=== PATIENT | female | born 1990 | race Caucasian/White ===

== ENCOUNTER → 2023-01-08 10:04 | Outpatient (BNVA) | payer MEDICAID, SELFPAY | PROVIDERS: Visit Provider Physician Assistant ==

== ENCOUNTER 2023-01-14 08:07 | Outpatient (AMB) | payer MEDICAID, SELFPAY ==
--- NOTE | 2023-01-14 13:16 | A.OFFVIS_ITS ---
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[employer] SWL BMI 38.2 HPI Details Start time: 1.15pm, End time: 2pm ?I spent 40 minutes speaking with the patient on the phone plus an additional 5 minutes reviewing and updating records for a total of 45 minutes HPI Comments History of Present Illness0 Details Previous weight loss efforts: Keto diet, 21-day diet Wakes up: 7am, Sleeps:11pm Breakfast: skips Lunch: 12-1pm (stuffed peppers, low carb wraps with chicken) Dinner: 7.30pm (same as lunch) Snacks: none Exercise: has Gym membership Fluids: Coffee: 1 8oz cup/d (creamer, milk), hot or iced tea: 2 cups/day (plain), soda/juice: none, ETOH: none PFSH Medical History (Updated 01/14/23 @ 13:20 by Jesus Manuel Coreas MD) Asthma DJD (degenerative joint disease) GERD (gastroesophageal reflux disease) PCOS (polycystic ovarian syndrome) Non-insulin dependent type 2 diabetes mellitus Surgical History (Updated 01/14/23 @ 13:20 by Jesus Manuel Coreas MD) Previous section Assessment & Plan Assessment & Plan (1) Obesity: Code(s): E66.9 - Obesity, unspecified Plan: 1.? Plan for lap sleeve gastrectomy. If diaphragmatic or ventral hernias are present at time of surgery, these will be repaired laparoscopically as well. Risks and complications were discussed in detail including possible conversion to an open procedure, anastomotic leak, bleeding requiring transfusion, small bowel obstruction, , DVT and pulmonary embolism, cardiac, or pulmonary complications, as prison complications such as anastomotic ulcer, insufficient weight loss and vitamin deficiencies. I emphasized the importance of close follow-up, adherence to instructions and good communication. 2. Nutritional counseling. Start with 2 CELEBRATE REBUILD protein (buy at hospital[facility]) shakes (HALF scoop EACH in 8oz low fat unsweetened almond milk each) at 8am-10am and 11am-1pm, 1 protein bar (CELEBRATE protein bars, buy at [facility] [employer] [facility]) at 2pm-4pm, HALF protein bar at 5-6pm, dinner at 7pm (8 forks of protein and 8 forks of salad/vegetables) AND one more protein bar after dinner at 9pm-11pm. So you do 2 protein shakes, 2.5 protein bars and one meal per day. Meal to include lean meat (beef, fish, pork, turkey, chicken), or cymro yogurt, or egg whites, or beans with a salad with olive oil and fruits (berries, pears, apples, kiwi). Avoid salt, breads, potatoes, rice, pasta, desserts. 3. Each shake would be drunk slowly, like coffee in a period of 2 hours. 4. Cut each bar in 4 pieces and eat each piece in 30min ?to make each bar last 2 hours. 5. I emphasized the importance of measuring accurately the food portion and measure it when serving the food in plate 6. The meal portions include 8 full-size forks of meat and 8 full-size forks of salad. You always eat the meat portion but you can replace up to 4 forks for salad/vegetables with rice, potatoes or pasta, or a fruit ?if you like. The less you do it the better weight loss will be. 7. One full-size fork is what it can be scooped on the fork without falling aside and not what can be bit with the fork. Use regular forks like those you find in a typical restaurant. 8.? Please send me weight measurements as soon as possible and then once a week. Always include your diet and exercise plan. Alternatively come weekly at the office for weight checks and send me the measurements. 9. Start treadmill with an incline of 2.0 and speed of 3.0. Increase incline by 1 every 3 min to a max incline of 8.0, stay 3min at 8.0 and then return to 2.0 and repeat same steps until calorie goal is met. Goal is to burn 2000 calories per week on exercise, which means either 300 calories daily, or 400 calories 5 days per week, or 500 calories 4 days per week, or 650 calories 3 days per week. Start also weight exercises with 20-30lbs for chest/shoulders/abdomen and 40- 50lbs for thighs doing 2 sets of 15 repetitions each. 10. Alternatively purchase a stationary bike, elliptical or treadmill at home that can track calories. Let me know if you do so I can give you an exercise plan. 11.?It is important of avoiding and for at least 18 months postoperatively and has been discussed at the infosession. 12. Goal is to lose at least 1.5-2lbs per week 13. Goal to lose 10% of your weight before surgery, which is about 22lbs. Ultimate weight goal: 197lbs before surgery 14. Please follow the diet plan exactly without any change. If you don't like something about the plan or you feel hungry you need to communicate with me so I can help you revise the plan. You should not change the plan yourself. (2) BMI 38.0-38.9,adult: Code(s): Z68.38 - Body mass index [BMI] 38.0-38.9, adult (3) PCOS (polycystic ovarian syndrome): Code(s): E28.2 - Polycystic ovarian syndrome (4) Non-insulin dependent type 2 diabetes mellitus: Code(s): E11.9 - Type 2 diabetes mellitus without complications (5) GERD (gastroesophageal reflux disease): Code(s): K21.9 - Gastro-esophageal reflux disease without esophagitis (6) DJD (degenerative joint disease): Code(s): M19.90 - Unspecified osteoarthritis, unspecified site (7) Asthma: Code(s): J45.909 - Unspecified asthma, uncomplicated Orders: Orders Insulin Today E11.9 - Type 2 diabetes mellitus without complications, E28.2 - Polycystic ovarian syndrome, E66.9 - Obesity, unspecified, J45.909 - Unspecified asthma, uncomplicated, K21.9 - Gastro-esophageal reflux disease without esophagitis, Z68.38 - Body mass index [BMI] 38.0-38.9, adult Vitamin B12 and Folate Today E11.9 - Type 2 diabetes mellitus without complications, E28.2 - Polycystic ovarian syndrome, E66.9 - Obesity, unspecified, J45.909 - Unspecified asthma, uncomplicated, K21.9 - Gastro- esophageal reflux disease without esophagitis, Z68.38 - Body mass index [BMI] 38.0-38.9, adult Zinc Today E11.9 - Type 2 diabetes mellitus without complications, E28.2 - Polycystic ovarian syndrome, E66.9 - Obesity, unspecified, J45.909 - Unspecified asthma, uncomplicated, K21.9 - Gastro-esophageal reflux disease without esophagitis, Z68.38 - Body mass index [BMI] 38.0-38.9, adult Vitamin A Today E11.9 - Type 2 diabetes mellitus without complications, E28.2 - Polycystic ovarian syndrome, E66.9 - Obesity, unspecified, J45.909 - Unspecified asthma, uncomplicated, K21.9 - Gastro-esophageal reflux disease without esopha gitis, Z68.38 - Body mass index [BMI] 38.0-38.9, adult Ferritin Today E11.9 - Type 2 diabetes mellitus without complications, E28.2 - Polycystic ovarian syndrome, E66.9 - Obesity, unspecified, J45.909 - Unspecified asthma, uncomplicated, K21.9 - Gastro-esophageal reflux disease without esophagitis, Z68.38 - Body mass index [BMI] 38.0-38.9, adult Vitamin D 25-OH Total Today E11.9 - Type 2 diabetes mellitus without complications, E28.2 - Polycystic ovarian syndrome, E66.9 - Obesity, unspecified, J45.909 - Unspecified asthma, uncomplicated, K21.9 - Gastro- esophageal reflux disease without esophagitis, Z68.38 - Body mass index [BMI] 38.0-38.9, adult Hemoglobin A1c Today E11.9 - Type 2 diabetes mellitus without complications, E28.2 - Polycystic ovarian syndrome, E66.9 - Obesity, unspecified, J45.909 - Unspecified asthma, uncomplicated, K21.9 - Gastro-esophageal reflux disease without esophagitis, Z68.38 - Body mass index [BMI] 38.0-38.9, adult XR chest 2V Today E11.9 - Type 2 diabetes mellitus without complications, E28.2 - Polycystic ovarian syndrome, E66.9 - Obesity, unspecified, J45.909 - Unspecified asthma, uncomplicated, K21.9 - Gastro-esophageal reflux disease without esophagitis, Z68.38 - Body mass index [BMI] 38.0-38.9, adult ECG 12 lead EKG Today E11.9 - Type 2 diabetes mellitus without complications, E28.2 - Polycystic ovarian syndrome, E66.9 - Obesity, unspecified, J45.909 - Unspecified asthma, uncomplicated, K21.9 - Gastro-esophageal reflux disease without esophagitis, Z68.38 - Body mass index [BMI] 38.0-38.9, adult Lipid Panel Today E11.9 - Type 2 diabetes mellitus without complications, E28.2 - Polycystic ovarian syndrome, E66.9 - Obesity, unspecified, J45.909 - Unspecified asthma, uncomplicated, K21.9 - Gastro-esophageal reflux disease without esophagitis, Z68.38 - Body mass index [BMI] 38.0-38.9, adult IRON PROFILE Today E11.9 - Type 2 diabetes mellitus without complications, E28.2 - Polycystic ovarian syndrome, E66.9 - Obesity, unspecified, J45.909 - Unspecified asthma, uncomplicated, K21.9 - Gastro-esophageal reflux disease without esophagitis, Z68.38 - Body mass index [BMI] 38.0-38.9, adult Complete Blood Count Auto Diff Today E11.9 - Type 2 diabetes mellitus without complications, E28.2 - Polycystic ovarian syndrome, E66.9 - Obesity, unspecified, J45.909 - Unspecified asthma, uncomplicated, K21.9 - Gastro- esophageal reflux disease without esophagitis, Z68.38 - Body mass index [BMI] 38.0-38.9, adult Comprehensive Met. Panel Today E11.9 - Type 2 diabetes mellitus without complications, E28.2 - Polycystic ovarian syndrome, E66.9 - Obesity, unspecified, J45.909 - Unspecified asthma, uncomplicated, K21.9 - Gastro- esophageal reflux disease without esophagitis, Z68.38 - Body mass index [BMI] 38.0-38.9, adult Vitamin B1 Today E11.9 - Type 2 diabetes mellitus without complications, E28.2 - Polycystic ovarian syndrome, E66.9 - Obesity, unspecified, J45.909 - Unspecified asthma, uncomplicated, K21.9 - Gastro-esophageal reflux disease without esophagitis, Z68.38 - Body mass index [BMI] 38.0-38.9, adult C Reactive Protein Today E11.9 - Type 2 diabetes mellitus without complications, E28.2 - Polycystic ovarian syndrome, E66.9 - Obesity, unspecified, J45.909 - Unspecified asthma, uncomplicated, K21.9 - Gastro-esophageal reflux disease without esophagitis, Z68.38 - Body mass index [BMI] 38.0-38.9, adult PTHI Today E11.9 - Type 2 diabetes mellitus without complications, E28.2 - Polycystic ovarian syndrome, E66.9 - Obesity, unspecified, J45.909 - Unspecified asthma, uncomplicated, K21.9 - Gastro-esophageal reflux disease without esophagitis, Z68.38 - Body mass index [BMI] 38.0-38.9, adult TSH reflex Free T4 Today E11.9 - Type 2 diabetes mellitus without complications, E28.2 - Polycystic ovarian syndrome, E66.9 - Obesity, unspecified, J45.909 - Unspecified asthma, uncomplicated, K21.9 - Gastro-esophageal reflux disease without esophagitis, Z68.38 - Body mass index [BMI] 38.0-38.9, adult H Pylori Breath Test Today E11.9 - Type 2 diabetes mellitus without complications, E28.2 - Polycystic ovarian syndrome, E66.9 - Obesity, unspecified, J45.909 - Unspecified asthma, uncomplicated, K21.9 - Gastro- esophageal reflux disease without esophagitis, Z68.38 - Body mass index [BMI] 38.0-38.9, adult US abdomen comp w elastography Today E11.9 - Type 2 diabetes mellitus without complications, E28.2 - Polycystic ovarian syndrome, E66.9 - Obesity, unspecified, J45.909 - Unspecified asthma, uncomplicated, K21.9 - Gastro- esophageal reflux disease without esophagitis, Z68.38 - Body mass index [BMI] 38.0-38.9, adult FL upper GI w air Today E11.9 - Type 2 diabetes mellitus without complications, E28.2 - Polycystic ovarian syndrome, E66.9 - Obesity, unspecified, J45.909 - Unspecified asthma, uncomplicated, K21.9 - Gastro-esophageal reflux disease without esophagitis, Z68.38 - Body mass index [BMI] 38.0-38.9, adult Referrals Behavioral Health Referral E11.9 - Type 2 diabetes mellitus without complications, E28.2 - Polycystic ovarian syndrome, E66.9 - Obesity, unspecified, J45.909 - Unspecified asthma, uncomplicated, K21.9 - Gastro- esophageal reflux disease without esophagitis, Z68.38 - Body mass index [BMI] 38.0-38.9, adult Nutrition/Dietitian Referral E11.9 - Type 2 diabetes mellitus without complications, E28.2 - Polycystic ovarian syndrome, E66.9 - Obesity, unspecified, J45.909 - Unspecified asthma, uncomplicated, K21.9 - Gastro- esophageal reflux disease without esophagitis, Z68.38 - Body mass index [BMI] 3 8.0-38.9, adult Telehealth Telehealth Location of provider rendering services: practice address Location of patient: address on file Patient Identification confirmed using: Name, : Yes Telehealth method: voice only Patient verbally consented to treatment: Yes Patient verbally consented to billing insurance company: Yes Patient informed of any privacy concerns related to visit: Yes Minutes spent on Phone/Video with Pt.: 45 Coding Level of Care Code Tele [facility] Pt Level 5 (64954) Diagnoses Obesity E66.9 BMI 38.0-38.9,adult Z68.38 PCOS (polycystic ovarian syndrome) E28.2 Non-insulin dependent type 2 diabetes mellitus E11.9 GERD (gastroesophageal reflux disease) K21.9 DJD (degenerative joint disease) M19.90 Asthma J45.909 Time Spent (min) 45
[2023-01-14 13:28] VITALS: BMI 38.2
== END 2023-01-14 14:01 | disposition home or self-care (01) ==
LOC: HO.HBS 08:07
PROVIDERS: Visit Provider Surgery
DX: E66.9 Obesity, unspecified (principal); Z68.38 Body mass index [BMI] 38.0-38.9, adult; E28.2 Polycystic ovarian syndrome; E11.9 Type 2 diabetes mellitus without complications; K21.9 Gastro-esophageal reflux disease without esophagitis; M19.90 Unspecified osteoarthritis, unspecified site; J45.909 Unspecified asthma, uncomplicated
CPT/HCPCS: 99443

== ENCOUNTER → 2023-01-14 08:07 | Outpatient (BNVA) | payer MEDICAID, SELFPAY | PROVIDERS: Visit Provider Surgery ==

== ENCOUNTER 2023-02-18 07:59 | Outpatient (AMB) | payer MEDICAID, SELFPAY ==
--- NOTE | 2023-02-18 11:09 | MHC.OFFVISWM ---
Intake VS Expanded 02/18/23 11:24 Height 5 ft 3.5 in Weight 214 lb 8 oz BMI 37.4 Body Fat % 48.3 Body Fat Mass 103.7 Fat Free Mass 111 Visceral Fat Rating 20 Body Water % 35.5 Body Water Mass 76.2 Basal Metabolic Rate/Score 1,457 Intake Visit Reasons: TV Follow Up SWL - 1ST Allergies loratadine Adverse Reaction (Intermediate, Verified 01/14/23 13:16) Gastrointestinal Upset HPI TV Follow Up SWL - 1ST HPI Details Start time: 11.05am, End time: 11.27am ?I spent 17 minutes speaking with the patient on the phone plus an additional 5 minutes reviewing and updating records for a total of 22 minutes HPI Comments History of Present Illness Details Overall weight loss: 4.2lbs, or 1.92% TBWL Is doing 2 ISO-100 protein shakes (1/2 scoop each in almond milk), 2 Zone Perfect protein bars and one meal (8 forks of protein and 8 forks Exercise: going to the Gym daily doing treadmill for 300 calories daily PFSH Medical History (Updated 01/14/23 @ 13:20 by Jesus Manuel Coreas MD) Asthma DJD (degenerative joint disease) GERD (gastroesophageal reflux disease) PCOS (polycystic ovarian syndrome) Non-insulin dependent type 2 diabetes mellitus Surgical History (Updated 01/14/23 @ 13:20 by Jesus Manuel Coeras MD) Previous section Telehealth Telehealth Location of provider rendering services: practice address Location of patient: address on file Patient Identification confirmed using: Name, : Yes Telehealth method: voice only Patient verbally consented to treatment: Yes Patient verbally consented to billing insurance company: Yes Patient informed of any privacy concerns related to visit: Yes Coding Level of Care Code Tele Est Pt Level 3 (70305) Time Spent (min) 22
[2023-02-18 11:24] VITALS: BMI 37.4
== END 2023-02-18 11:28 | disposition home or self-care (01) ==
LOC: HO.HBS 07:59
PROVIDERS: Visit Provider Surgery
DX: E66.09 Other obesity due to excess calories (principal); Z68.37 Body mass index [BMI] 37.0-37.9, adult
CPT/HCPCS: 99443

== ENCOUNTER → 2023-02-18 07:59 | Outpatient (BNVA) | payer MEDICAID, SELFPAY | PROVIDERS: Visit Provider Surgery ==

== ENCOUNTER 2023-05-27 08:20 | Outpatient (AMB) | payer MEDICAID, SELFPAY ==
[2023-05-27 16:20] VITALS: BMI 37.5
--- NOTE | 2023-05-27 16:20 | A.OFFVIS_ITS ---
Intake VS Expanded 05/27/23 16:20 Height 5 ft 3.5 in Weight 215 lb 4 oz BMI 37.5 Body Fat % 48.6 Body Fat Mass 104.6 Fat Free Mass 110.8 Visceral Fat Rating 19 Body Water % 35.3 Body Water Mass 76 Basal Metabolic Rate/Score 1,460 Intake Visit Reasons: TV Follow Up SWL Allergies loratadine Adverse Reaction (Intermediate, Verified 01/14/23 13:16) Gastrointestinal Upset HPI TV Follow Up SWL HPI Details Start time: 4.18pm, End time: 4.38pm ?I spent 15 minutes speaking with the patient on the phone plus an additional 5 minutes reviewing and updating records for a total of 20 minutes HPI Comments History of Present Illness Details Overall weight loss: 9.6lbs, or 4.27% TBWL Is doing one Iso-100 (1/2 scoop in almond milk), 1 Quest protein bar and one meal (8 forks of protein and 8 forks of salad or vegetables) Exercise: Doing treadmill daily for 300-400 calories PFSH Medical History (Updated 05/27/23 @ 16:36 by Jesus Manuel Coreas MD) Asthma DJD (degenerative joint disease) GERD (gastroesophageal reflux disease) PCOS (polycystic ovarian syndrome) Non-insulin dependent type 2 diabetes mellitus Surgical History (Updated 01/14/23 @ 13:20 by Jesus Manuel Coreas MD) Previous section Assessment & Plan Assessment & Plan (1) Obesity: Code(s): E66.9 - Obesity, unspecified Qualifiers: Obesity type: due to excess calories Obesity classification: adult class 2 (BMI 35 - 39.9) Serious obesity comorbidity presence: with serious comorbidity Body mass index: BMI 37.0-37.9 Qualified Code(s): E66.01 - Morbid (severe) obesity due to excess calories; Z68.37 - Body mass index [BMI] 37.0- 37.9, adult Plan: 1. Plan for lap sleeve gastrectomy including upper GI endoscopy. All tests has been completed and reviewed and the patient is cleared for the surgery. ?If diaphragmatic or ventral hernias are present at time of surgery, these will be repaired laparoscopically as well. Risks and complications were discussed in detail including possible conversion to an open procedure, anastomotic leak, bleeding requiring transfusion, small bowel obstruction, , DVT and pulmonary embolism, cardiac, or pulmonary complications, as exterminator helper termite complications such as anastomotic ulcer, insufficient weight loss and vitamin deficiencies. I emphasized the importance of close follow-up, adherence to instructions and good communication. So far she has proven to be an excellent communicator and very compliant with all our directions accomplishing a great weight loss. I believe that she is an excellent candidate and she is ready. 2. Continue same nutritional plan of one Iso-100 (1/2 scoop in almond milk), 1 Quest protein bar and one meal (8 forks of protein and 8 forks of salad or vegetables) 3. Exercise: Continue treadmill daily for 300-400 calories 4. Send me weight measurements weekly on Mondays Telehealth Telehealth Location of provider rendering services: practice address Location of patient: address on file Patient Identification confirmed using: Name, : Yes Telehealth method: voice only Patient verbally consented to treatment: Yes Patient verbally consented to billing insurance company: Yes Patient informed of any privacy concerns related to visit: Yes Minutes spent on Phone/Video with Pt.: 20 Coding Level of Care Code Tele Est Pt Level 3 (56094) Diagnoses Class 2 severe obesity due to excess calories with serious comorbidity and body mass index (BMI) of 37.0 to 37.9 in adult E66.01; Z68.37 Obesity type: due to excess calories Obesity classification: adult class 2 (BMI 35 - 39.9) Serious obesity comorbidity presence: with serious comorbidity Body mass index: BMI 37.0-37.9 Time Spent (min) 20
== END 2023-05-27 16:39 | disposition home or self-care (01) ==
LOC: HO.HBS 08:20
PROVIDERS: Visit Provider Surgery
DX: E66.01 Morbid (severe) obesity due to excess calories (principal); Z68.37 Body mass index [BMI] 37.0-37.9, adult
CPT/HCPCS: 99442

== ENCOUNTER → 2023-05-27 08:20 | Outpatient (BNVA) | payer MEDICAID, SELFPAY | PROVIDERS: Visit Provider Surgery ==

== ENCOUNTER 2023-05-28 15:54 | Outpatient (AMB) | payer MEDICAID, SELFPAY ==
--- NOTE | 2023-05-28 15:50 | A.OFFVIS_ITS ---
Intake Intake Visit Reasons: (TV) Initial Nutrition SWL Allergies loratadine Adverse Reaction (Intermediate, Verified 01/14/23 13:16) Gastrointestinal Upset HPI Nutrition Presentation Reason for consult elevated BMI Diet Assmnt Details pt reports she has been doing well with surgeons nutrition plan, has no concerns or questions today . Per surgeon last note pt is ready for surgery. Is doing 1 hour 30 minutes walking every day SWL online classes : completed, scored well and reviewed. Dietary counseling reduction Who buys your food self Who prepares/cooks your food self Diagnosis Nutrition problem #1 overweight/obesity As related to (etiology) #1 excess energy intake and physical inactivity As evidenced by (sign/symptom) #1 high BMI Monitoring/Goals Nutrition problem monitoring total energy intake, level of knowledge/skill, total PRO intake, total CHO intake and weight Outcome progress progressing Learning/Education Readiness to learn good Stages of change action Educational materials provided Yes Most Recent Diabetes Results: No Data to Display [facility] Medical History (Updated 05/27/23 @ 16:36 by Jesus Manuel Coreas MD) Asthma DJD (degenerative joint disease) GERD (gastroesophageal reflux disease) PCOS (polycystic ovarian syndrome) Non-insulin dependent type 2 diabetes mellitus Surgical History (Updated 01/14/23 @ 13:20 by Jesus Manuel Coreas MD) Previous section Assessment & Plan Assessment & Plan (1) Obesity (BMI 30-39.9): Code(s): E66.9 - Obesity, unspecified Plan Patient is cleared from a nutrition standpoint for bariatric surgery. Educati onal requirements have been completed. Reviewed vitamin supplementation and commitment to protein shake for several months post surgery. Encouraged communication with office as needed Telehealth Telehealth Location of provider rendering services: other ([facility]) Location of patient: address on file Patient Identification confirmed using: Name, : Yes Telehealth method: voice only Patient verbally consented to treatment: Yes Patient verbally consented to billing insurance company: Yes Patient informed of any privacy concerns related to visit: Yes Minutes spent on Phone/Video with Pt.: 20 Coding Level of Care Code Nutr Indiv Intake (92139) Diagnoses Obesity (BMI 30-39.9) E66.9 Time Spent (min) 20
== END 2023-05-28 16:00 | disposition home or self-care (01) ==
LOC: HO.HBS 15:54
PROVIDERS: Visit Provider Dietitian, Registered
DX: E66.9 Obesity, unspecified (principal)

== ENCOUNTER → 2023-05-28 15:54 | Outpatient (BNVA) | payer MEDICAID, SELFPAY | PROVIDERS: Visit Provider Dietitian, Registered | DX: E66.9 Obesity, unspecified (principal) | CPT/HCPCS: 97802 ==